=== PATIENT | female | born 1960 | race Caucasian/White ===

== ENCOUNTER → 2019-10-28 16:39 | Outpatient (CLI) | payer BC, SELFPAY ==
--- NOTE | 2019-10-28 16:39 | MM_ITS ---
PROCEDURE: MM DIG SCREENING MAMM BI W/CAD Digital Breast Tomosynthesis Included CLINICAL INDICATION: screening xmg There is a history of breast cancer patient's mother diagnosed after menopause and the patient's maternal aunt and paternal aunt. There has been previous biopsy right breast for benign disease. COMPARISON: MG DIG MAMMO BILAT SCREENING from 04/23/2010 MG MA MAMMO SCRN DIGITL BILAT from 03/29/2012 MG MA MAMMO SCRN DIGITL BILAT from 09/17/2013 MG MA MAMMO SCRN DIGITL BILAT from 10/01/2014 MG MA MAMMO SCRN DIGITL BILAT from 10/04/2015 Previous digital mammograms from [facility] were obtained but only CC views or available for review. TECHNIQUE: Standard CC and MLO images and 3D Tomosynthesis was obtained. R2 CAD reviewed. FINDINGS: Scattered fibroglandular densities are seen in both breast primarily upper outer quadrants. There are several mole markers on each breast. There is a stable tiny benign-appearing nodular density upper-outer quadrant right breast. There are additional benign-appearing nodular densities outer quadrant right breast which have appearance typical of intramammary nodes which are stable and unchanged from previous outside exams. There is no suspicious lesion and no suspicious microcalcifications. IMPRESSION: Fibrofatty parenchyma with no suspicious lesions seen BI-RAD Category: 2 Benign Finding(s) FOLLOW-UP: 1YR 1 Year Follow-up (A letter has been sent to the patient regarding results of the study.) Dictated Dr. Crow Mcgee MD 11/14/2019 08:13 Dr. Crow Bender MD in [place] 11/14/2019 08:13
== END ==
PROVIDERS: PCP Family Medicine; Visit Provider Nurse Practitioner Obstetrics & Gynecology
DX: Z12.31 Encounter for screening mammogram for malignant neoplasm of breast (principal)
CPT/HCPCS: 77063; 77067

== ENCOUNTER → 2020-03-31 14:04 | Outpatient (CLI) | payer BC, SELFPAY ==
--- NOTE | 2020-03-31 14:19 | US_ITS ---
PROCEDURE: US SOFT TISSUE HEAD AND NECK CLINICAL INDICATION: NECK MASS COMPARISON: No exams were available for comparison FINDINGS: Scanning over the palpable area right side of the neck what appears to normal appearing lymph node. Scanning over a similar area left-sided neck shows normal appearing lymph node. No abnormal lymphadenopathy identified and no other abnormal masses seen. IMPRESSION: Probable normal nodes both sides of the neck Dictated by: Dr. Crow Bender MD 04/05/2020 08:49 Dr. Crow Bender MD in 04/05/2020 08:49
== END ==
PROVIDERS: PCP Family Medicine; Visit Provider Family Medicine
DX: R22.1 Localized swelling, mass and lump, neck (principal)
CPT/HCPCS: 76536

== ENCOUNTER → 2020-09-29 13:09 | Outpatient (CLI) | payer BC, SELFPAY ==
--- NOTE | 2020-09-29 13:16 | US_ITS ---
PROCEDURE: US KIDNEY CLINICAL INDICATION: HEMATURIA,UNSPECIFIED TYPE, FAMILY HX OF KIDNEY CANCER COMPARISON: No exams were available for comparison FINDINGS: The right kidney is 8 x 4 x 5 cm. No hydronephrosis, cortical thinning, or renal mass or perinephric fluid collection is evident. The left kidney is 10 x 5 x 6 cm. No hydronephrosis, cortical thinning, or renal mass or perinephric fluid collection is evident. IMPRESSION: Unremarkable bilateral renal ultrasound Dictated by: Jeyson Cannon MD 09/30/2020 15:04 Jeyson Cannon MD in [place] 09/30/2020 15:04
== END ==
PROVIDERS: PCP Family Medicine; Visit Provider Family Medicine
DX: R31.9 Hematuria, unspecified (principal); Z80.51 Family history of malignant neoplasm of kidney
CPT/HCPCS: 76770

== ENCOUNTER → 2021-10-17 10:15 | Outpatient (CLI) | payer BC, SELFPAY ==
--- NOTE | 2021-10-17 10:16 | MM_ITS ---
PROCEDURE INFORMATION: Exam: MG Bilateral Screening 3D Mammography Exam date and time: 10/17/2021 10:17 AM Age: 61 years old Clinical indication: Screening mammogram TECHNIQUE: Imaging protocol: Bilateral Screening tomosynthesis and 2D mammography including computer-aided detection (CAD) when performed. COMPARISON: MG MM DIG SCREENING MAMM BI W/CAD 10/28/2019 4:46 PM FINDINGS: MAMMOGRAPHY: Breast composition: There are scattered areas of fibroglandular density. Mass: None. Architectural distortion: No new or suspicious architectural distortion. Calcifications: No new or suspicious calcifications are present Asymmetric density: No new or suspicious asymmetric density is present Skin thickening: None. Axillary adenopathy: None. IMPRESSION: No mammographic evidence of malignancy. Recommend annual screening mammography unless otherwise clinically indicated. ASSESSMENT: BI-RADS category 1: Negative
== END ==
PROVIDERS: PCP Family Medicine; Visit Provider Nurse Practitioner Obstetrics & Gynecology
DX: Z12.31 Encounter for screening mammogram for malignant neoplasm of breast (principal)
CPT/HCPCS: 77063; 77067

== ENCOUNTER 2023-08-07 15:51 | Outpatient (CLI) | payer MEDICARE, SELFPAY ==
--- NOTE | 2023-08-07 15:52 | MM_ITS ---
PROCEDURE INFORMATION: Exam: MG Bilateral Screening 3D Mammography Exam date and time: 08/07/2023 3:52 PM Age: 63 years old Clinical indication: Screening examination TECHNIQUE: Imaging protocol: Bilateral Screening tomosynthesis and 2D mammography including computer-aided detection (CAD) when performed. COMPARISON: 1. MG MM DIG SCREENING MAMM BI W/CAD 10/17/2021 10:17 AM 2. MG MM DIG SCREENING MAMM BI W/CAD 10/28/2019 4:46 PM FINDINGS: MAMMOGRAPHY: Breast composition: There are scattered areas of fibroglandular density. Mass: None. Architectural distortion: None. Calcifications: No suspicious calcifications. Asymmetric density: None. Skin thickening: None. Axillary adenopathy: None. IMPRESSION: No mammographic evidence of malignancy. Annual screening is recommended unless otherwise clinically indicated. ASSESSMENT: BI-RADS Category 1: Negative
== END 2023-08-07 23:59 | disposition home or self-care (01) ==
LOC: RAD 15:52
PROVIDERS: PCP Nurse Practitioner Obstetrics & Gynecology; Visit Provider Nurse Practitioner Obstetrics & Gynecology
DX: Z12.31 Encounter for screening mammogram for malignant neoplasm of breast (principal)
CPT/HCPCS: 77063; 77067

== ENCOUNTER 2025-01-27 15:36 | Outpatient (CLI) | payer MEDICARE, SELFPAY ==
--- OUTSIDE RECORDS SUMMARY | 2025-01-27 15:41 | XMS_ITS | Encounter Summary ---
[facility] Organization [facility] Address [address] [place] [address] Care Team Providers Care Communications Strategist Name Role Phone Thai Kline MD Primary Care Provider + Encounter Details Date Type Department Care Team (Late st Contact Info) Description 10/22/2024 Results Follow-Up [facility] MED[facility]INE [address] [facility] [place] [address] Thai Kline MD [address] [place] [address] Social History Tobacco Use Types Packs/Day Years Used Date Smoking Tobacco: Never Smokeless Tobacco: Never Alcohol Use Standard Drinks/Week Comments Never 0 (1 standard drink = 0.6 oz pur e alcohol) PHQ-2 Answer Date Recorded Retired PHQ-9: Brief Depression Severity Measure Score 0 04/13/2022 PHQ-2 Answer Date Recorded Patient Health Questionnaire-2 Score 0 10/21/2024 Comments Unknown Sex and Gender Information Value Date Recorded Sex Assigned at Female 10/14/2024 9:13 AM EDT Legal Sex Female 10:46 AM EDT Gender Identity Not on file Sexual Orientation Not on file documented as of this encounter Plan of Treatment Upcoming Encounters Date Type Department Care Team (Late st Contact Info) Description 04/23/2025 8:15 AM EST Office Visit [facility] MED[facility] [address] [facility] [place] [address] Thai Kline MD [address] [place] [address] documented as of this encounter Visit Diagnoses Not on filedocumented in this encounter Care Teams Communications Strategist Relationship Specialty Start Date End Date Thai Kline MD [address] [place] [address] PCP - General Family Medicine 08/04/21 documented as of this encounter
--- OUTSIDE RECORDS SUMMARY | 2025-01-27 15:41 | XMS_ITS | Clinical Summary ---
Author Organization Healthcare Address [address] [place] [address] Care Team Providers Care Director Digital Name Role Phone Unavailable Primary Care Provider Unavailabl e Social History Tobacco Use Types Packs/Day Years Used Date Smoking Tobacco: Never Assessed Comments Unknown Sex and Gender Information Value Date Recorded Sex Assigned at Not on file Legal Sex Female 8:53 PM EDT Gender Identity Not on file Sexual Orientation Not on file Last Filed Vital Signs Vital Sign Reading Time Taken Comments Blood Pressure - - Pulse - - Temperature - - Respiratory Rate - - Oxygen Saturation - - Inhaled Oxygen Concentration - - Weight 85.9 kg (189 lb 6 oz) 08/24/2010 4:30 PM EDT Height - - Body Mass Index - - Plan of Treatment Not on file
--- OUTSIDE RECORDS SUMMARY | 2025-01-27 15:41 | XMS_ITS | Encounter Summary ---
Author Organization [facility] Address [address] [place] [address] Care Team Providers Care Warehouse Distribution Specialist Name Role Phone Thai Kline MD Primary Care Provider + Reason for Visit * Reason Comments Med Refill Encounter Details Date Type Department Care Team (Late st Contact Info) Description 06/19/2024 Refill [facility] MED[facility]INE [address] [facility] [place] [address] Thai Kline MD [address] [facility] [address] Type 2 diabetes mellitus without complication, without long-term current use of insulin Social History Tobacco Use Types Packs/Day Years Used Date Smoking Tobacco: Never Smokeless Tobacco: Never Alcohol Use Standard Drinks/Week Comments Never 0 (1 standard drink = 0.6 oz pur e alcohol) PHQ-2 Answer Date Recorded Retired PHQ-9: Brief Depression Severity Measure Score 0 04/13/2022 PHQ-2 Answer Date Recorded Patient Health Questionnaire-2 Score 0 04/17/2024 Comments Unknown Sex and Gender Information Value Date Recorded Sex Assigned at Female 10/14/2024 9:13 AM EDT Legal Sex Female 10:46 AM EDT Gender Identity Not on file Sexual Orientation Not on file documented as of this encounter Plan of Treatment Upcoming Encounters Date Type Department Care Team (Late st Contact Info) Description 04/23/2025 8:15 AM EST Office Visit [facility] MEDICINE [address] [place] [address] Thai Kline MD [address] [place] [address] documented as of this encounter Visit Diagnoses Diagnosis Type 2 diabetes mellitus without complication, without long-term current use of insulin documented in this encounter Care Teams Warehouse Distribution Specialist Relationship Specialty Start Date End Date Thai Kline MD [address] [place] [address] PCP - General Family Medicine 08/04/21 documented as of this encounter
--- OUTSIDE RECORDS SUMMARY | 2025-01-27 15:41 | XMS_ITS | Continuity of Care Document ---
Author Organization [facility] JERRY Delacruz BETHEL Address [address] [place] [address] Care Team Providers Care Country Printer Apprentice Name Role Phone WILMER VASQUEZ Referring Provider [phone] WILMER VASQUEZ Primary Care Provider Assessment No assessment recorded. Plan of Treatment Reminders Order Date Submit Date Provider Last Modified By Organization Details Last Modified Time Details Appointments DERM VISIT 026 01:10PM KRISTOFER JACKMAN MD Not available Not available Not available Lab None recorde d. Referral None recorde d. Procedures None recorde d. Surgeries None recorde d. Imaging None recorde d. Medication Orders None recorde d. Patient TargetsNo targets recorded. Patient Instructions Encounter Date Encounter Id Patient Instructions Last Modified By Organization Details Last Modified Time 01/07/2025 [id number] pt reports havin g itchy skin, recommend Cera Ve itch relief. skin care HO given. Not available 01/07/2025 13:50:00 Reason for Referral None Reported. Procedures Surgical History Date Name Laterality Status Provider Name and Address Organization Details Recorded Time 01/07/2025 DAK - Cryo AK completed Jordan Sue [facility] 01/07/2025 13:48:44 Imaging Results None recorded. Procedure Notes None recorded. Medical Equipment None Reported. Allergies Allergen ID Allergen Name Allergen Category Reaction Reaction Severity Criticality Documentation Date Start Date Code Code System Note Provider Name and Address Organization Details Recorded Time 715615 codeine medicatio n Not available Not available Not available 01/07/2025 2670 RxNorm Donte mcelroy [facility] 13:30:12 155286 latex environme nt,medica tion Not available Not available Not available 01/07/2025 49737 91 RxNorm Donte Richards [facility] 13:30:17 041278 erythromy sana medicatio n Not available Not available Not available 01/07/2025 4053 RxNorm Dontekamala Richards [facility] 13:32:25 Medications Name Sig Start Date Stop Date Status Note LastModified by Organization Details LastModified Time Multiple Vitamin capsule Daily active Duration: 30 days;Frequ ency: daily;Medi cation Descriptio n: multivitam in; Dosage:1; Route:oral ; refills:3; Quantity:1 00 capsule Not Available Not Available Not Available lisinopril 20 mg tablet Bedtime 2009 active Duration: 30 days;Frequ ency: hs;Medicat ion Descriptio n: lisinopril ; Dosage:1; Route:oral ; refills:5; Quantity:3 0 tablet Not Available Not Available Not Available Lexapro 10 mg tablet Daily 2009 active Duration: 30 days;Frequ ency: daily;Medi cation Descriptio n: escitalopr am; Dosage:1; Route:oral ; refills:5; Quantity:3 0 tablet Not Available Not Available Not Available calcium active Medication Descriptio n: calcium carbonate; Route:oral ; refills:0 Not Available Not Available Not Available Metamucil Two times a day active Frequency: bid;Medica tion Descriptio n: psyllium; Dosage:1; Route:oral ; refills:0 Not Available Not Available Not Available Miralax Two times a day active Instructio ns: 17gm in 8oz fluids QTY QS;Frequen cy: bid;Medica tion Descriptio n: polyethyle ne glycol 3350; Dosage:as directed; Route:oral ; refills:0; Quantity:1 powder for reconstitu tion Not Available Not Available Not Available Fortamet 2009 active Medication Descriptio n: metformin; Route:oral ; refills:0 Not Available Not Available Not Available Align (B.infanti s) 4 mg capsule Daily active Duration: 30 days;Frequ ency: daily;Medi cation Descriptio n: bifidobact erium infantis; Dosage:1; Route:oral ; refills:0; Quantity:3 0 capsule Not Available Not Available Not Available Toviaz 4 mg tablet,ext ended release active Medication Descriptio n: fesoterodi ne; Route:oral ; refills:0 Not Available Not Available Not Available Vitals None Recorded Social History None recorded. Functional Status None recorded. Mental Status None recorded. Family History Relationship Description Onset Age of this Age Resolved Age Notes LastModified by Organization Details LastModified Time Sister Malignant neoplasm of skin [email or web address] Not available 01/07 13:30:56 Brother Malignant neoplasm of skin kvogelsang Not available 01/07 13:30:56 Medical History No medical history recorded. Gynecological HistoryNo gynecological history recorded. Obstetrics History GPAL:G 0 P 0 0 0 0 Past Encounters Encounter ID Performer Location Encounter Start Date Encounter Closed Date Diagnosis/Indication Diagnosis SNOMED-CT Code Diagnosis ICD10 Code Diagnosis IMO Codes Diagnosis Note [id number] KRISTOFER JACKMAN MD [address] [id number] 01/07/2025 13:18:21 01/07/2025 13:54:47 Melanocytic nevus of trunk 470501200 D22.5 L81.4 D18.01 L82.1 [id number] Benign appearing lesions.Re assurance given.Sun protection discussed. Look for physical robel sunscreens with at least SPF 30 containing zinc oxide or titanium dioxide as active ingredient . This helps avoid risks inherent to chemical sunscreens including photoaller gic, phototoxic , allergic contact and irritant contact dermatitis .Recommend monthly self examinatio ns and yearly full skin examinatio n with a dermatolog y provider.P atient instructed to call with any concerns or changing lesions. Actinic keratosis 007 L57.0 46178 Actinic keratoses are precancero us lesions that may progress to squamous cell carcinoma if untreated. UV light and genetics may increase risk. Treated lesions should blister, scab over, and heal within a few weeks.-Dis cussed treatment options including cryotherap y. If lesion on nose does not resolve within a month, RTC for biospy. Health Concerns Section Related Observation LastModified by Organization Krystal gan LastModified Time None Recorded Concern Status LastModified by Organization Details LastModified Time None Recorded Payers Encounter Date Sequence Insurance Name Policy Number Policy Haley Covered Member ID Haley Member ID Guarantor Name 01/07/2025 1 [place] GUIDEDACCESS [place]ON[place] - PATHWAY X (POS) [id number] Davina Wilkins [id number] Davina Wilkins Notes Date Note Type Note Provider Name and Address Organization Details Recorded Time 01/07/2025 text/html ROS as noted in the HPI I'm here for a skin checkConcerns: noseReports: pcp thinks spot on nose is SCC New pt. KRISTOFER JACKMAN MD [address] [place] [address], [phone], [facility] 01/07/2025 13:55:00 OBGyn Episode No OBEpisode recorded.
--- OUTSIDE RECORDS SUMMARY | 2025-01-27 15:42 | XMS_ITS | Encounter Summary ---
[facility] [address] [place] [address] Care Team Providers Care Youth Program Director Name Role Phone Thai Kline MD Primary Care Provider + Reason for Visit * Reason Comments Med Refill Encounter Details Date Type Department Care Team (Late st Contact Info) Description 12/20/2024 Refill [facility] [address] [facility] [place] [address] Thai Kline MD [address] [place] [address] Localized osteoporosis without current pathological fracture Social History Tobacco Use Types Packs/Day Years [...] Description 04/23/2025 8:15 AM EST Office Visit [facility] MEDICINE [address] [place] [address] Thai Kline MD [address] [place] [address] documented as of this encounter Visit Diagnoses Diagnosis Localized osteoporosis without current pathological fracture documented in this encounter Care Teams Youth Program Director Relationship Specialty Start Date End Date Thai Kline MD [address] [place] [address] PCP - General Family Medicine 08/04/21 documented as of this encounter
--- OUTSIDE RECORDS SUMMARY | 2025-01-27 15:42 | XMS_ITS | Encounter Summary ---
[facility] Address [address] [place] [address] Care Team Providers Care Distillery Supervisor Name Role Phone Thai Kline MD Primary Care Provider + Encounter Details Date Type Department Care Team (Late st Contact Info) Description 10/31/2024 Results Follow-Up [facility] MED[facility]INE [address] [facility] [place] [address] Thai Kline MD [address] [place] [address] Social History Tobacco Use Types [...] Description 04/23/2025 8:15 AM EST Office Visit [facility] [address] [facility] [place] [address] Thai Kline MD [address] [place] [address] documented as of this encounter Visit Diagnoses Not on filedocumented in this encounter Care Teams Distillery Supervisor Relationship Specialty Start Date End Date Thai Kline MD [address] [place] [address] PCP - General Family Medicine 08/04/21 documented as of this encounter
--- OUTSIDE RECORDS SUMMARY | 2025-01-27 15:42 | XMS_ITS | Data Portability ---
Author Organization [facility] Address [address] [place] [address] Care Team Providers Care Acoustics Teacher Name Role Phone WILMER VASQUEZ Referring Provider WILMER VASQUEZ Primary Care Provider [phone] Assessment No assessment recorded. Plan of Treatment [...] By Organization Details Last Modified Time 01/07/2025 [id number] pt reports elieserin g itchy skin, recommend Cera Ve itch relief. skin care HO given. [email or web address] Not available 01/07/2025 13:50:00 Reason for Referral None Reported. Procedures Surgical History Date Name Laterality Status Provider Name and Address Organization Details Recorded Time 01/07/2025 DAK - Cryo AK completed Jordan [facility] 01/07/2025 13:48:44 Imaging Results None recorded. Procedure Notes None recorded. Medical Equipment None Reported. Allergies Allergen ID Allergen Name Allergen Category Reaction Reaction Severity Criticality Documentation Date Start Date Code Code System Note Provider Name and Address Organization Details Recorded Time 276278 codeine medicatio n Not available Not available Not available 01/07/2025 2670 RxNorm Donte Richards [facility] 13:30:12 662032 latex environme nt,medica tion Not available Not available Not available 01/07/2025 66240 91 RxNorm Donte Richards [facility] 13:30:17 905420 erythromy sana medicatio n Not available Not available Not available 01/07/2025 4053 RxNorm Donte Richards [facility] 13:32:25 Medications Name Sig Start Date Stop [...] ICD10 Code Diagnosis IMO Codes Diagnosis Note [id number] [place] [address] 07/10/2016 14:28:23 07/10/2016 14:28:23 [id number] KRISTOFER JACKMAN MD [address] [place] [address] [place] [address] 01/07/2025 13:18:21 01/07/2025 13:54:47 Melanocytic nevus of trunk 822176703 D22.5 L81.4 D18.01 L82.1 [id number] Benign appearing lesions.Re assurance given.Sun protection discussed. [...] any concerns or changing lesions. Actinic keratosis 188178 007 L57.0 13530 Actinic keratoses are precancero us lesions that may progress to squamous cell carcinoma if untreated. UV light and genetics may increase risk. Treated lesions should blister, scab over, and heal within a few weeks.-Dis cussed treatment options including cryotherap y. If lesion on nose does not resolve within a month, RTC for biospy. Health Concerns Section Related Observation LastModified by Organization Detai ls LastModified Time None Recorded Concern Status LastModified by Organization Details LastModified Time None Recorded Advance Directives Directive None Recorded Payers Insurance Date Sequence Insurance Name Policy Number Policy Haley Covered Member ID Haley Member ID Guarantor Name 01/07/2025 1 [place]ACCESS [place] - PATHWAY X (POS) [id number] Davina Wilkins [id number] Davina Wilkins Notes Date Note Type Note Provider Name and Address Organization Details Recorded Time 01/07/2025 text/html ROS as noted in the HPI I'm here for a skin checkConcerns: noseReports: pcp thinks spot on nose is SCC New pt. KRISTOFER JACKMAN MD [address] [place], [address], [facility] 01/07/2025 13:55:00 OBGyn Episode No OBEpisode recorded.
--- OUTSIDE RECORDS SUMMARY | 2025-01-27 15:42 | XMS_ITS | Clinical Summary ---
Author Organization [facility] Address [address] [place] [id number] Care Team Providers Care Sagger Soak Name Role Phone Thai Kline MD Primary Care Provider + Allergies Active Allergy Reactions Criticality Noted Date Comments Codeine Nausea And Vomiting Low 08/04/2021 Erythromycin Nausea And Vomiting Low 08/04/2021 Iodinated Contrast Media Rash Low 04/08/2021 Medications multivitamin with minerals tablet tablet Take 1 tablet by mouth Daily. Active Ibuprofen-diphenh ydrAMINE Cit (ADVIL PM PO) Take by mouth. A ctive glucose blood (OneTouch Ultra) test stripIndications: Type 2 diabetes mellitus without complication, without long-term current use of insulin Use as instructed 100 each 2 4 Active polyethylene glycol (GoLYTELY) 236 g solution Starting at noon on day prior to procedure, drink 8 ounces every 30 minutes until all gone or stools are clear. May add flavor packet. 4000 mL 4 Active Blood Glucose Monitoring Suppl (ONE TOUCH ULTRA 2) w/Device kitIndications:Ty pe 2 diabetes mellitus without complication, without long-term current use of insulin Use Glucometer daily to check blookd sugar. 1 each 5 Active atorvastatin (LIPITOR) 10 MG tabletIndications :Type 2 diabetes mellitus without complication, without long-term current use of insulin Take 1 tablet by mouth Daily. 30 tablet 11 5 Active dapagliflozin Propanediol 10 MG tabletIndications :Type 2 diabetes mellitus without complication, without long-term current use of insulin,Stage 3a chronic kidney disease (CKD) Take 10 mg by mouth Daily. 30 tablet 11 5 Active escitalopram (LEXAPRO) 10 MG tabletIndications :Mood disorder Take 1 tablet by mouth Daily. 90 tablet 1 5 Active metFORMIN (GLUCOPHAGE) 500 MG tabletIndications :Type 2 diabetes mellitus without complication, without long-term current use of insulin Take 1 tablet by mouth 2 (Two) Times a Day With Meals. 60 tablet 11 5 Active traZODone (DESYREL) 50 MG tabletIndications :Insomnia, unspecified type Take 1 tablet by mouth Every Night. 90 tablet 3 5 Active lisinopril (PRINIVIL,ZESTRIL ) 40 MG tabletIndications :Primary hypertension TAKE 1 TABLET BY MOUTH DAILY 90 tablet 3 5 Active cyclobenzaprine (FLEXERIL) 5 MG tabletIndications :Neck pain TAKE ONE TABLET BY MOUTH ONCE NIGHTLY NEEDED FOR MUSCLE SPASMS 30 tablet 6 5 Active oxybutynin XL (DITROPAN-XL) 10 MG 24 hr tabletIndications :Overactive bladder Take 1 tablet by mouth Daily. 30 tablet 11 5 Active alendronate (FOSAMAX) 70 MG tabletIndications :Localized osteoporosis without current pathological fracture TAKE 1 TABLET BY MOUTH ONCE WEEKLY ON AN EMPTY STOMACH BEFORE BREAKFAST. REMAIN UPRIGHT FOR 30 MINUTES AND TAKE WITH 8 OUNCES OF WATER 12 tablet 5 Active Active Problems Problem Noted Date Diagnosed Date Stage 3a chronic kidney disease (CKD) 10/12/2022 Overactive bladder 04/13/2022 Assessment & Plan (10/21/2024 9:56 AM EDT): Orders: oxybutynin XL (DITROPAN-XL) 10 MG 24 hr tablet; Take 1 tablet by mouth Daily. Neck pain 04/13/2022 Type 2 diabetes mellitus wit hout complication, without long-term current use of insulin 10/12/2021 Assessment & Plan (10/21/2024 9:56 AM EDT): {Diabetes (Optional):[id number]} Orders: POC Albumin/Creatinine Ratio Urine Assessment & Plan (04/13/2022 11:25 AM EST): Diabetes is improving with treatment. Continue current treatment regimen. Regular aerobic exercise. Diabetes will be reassessed in 6 months. Primary hypertension 10/12/2021 Assessment & Plan (10/21/2024 9:56 AM EDT): {Hypertension is (optional):[id number]} Assessment & Plan (04/13/2022 11:25 AM EST): Hypertension is improving with treatment. Continue current treatment regimen. Dietary sodium restriction. Regular aerobic exercise. Blood pressure will be reassessed at the next regular appointment. Mood disorder 10/12/2021 Assessment & Plan (04/13/2022 11:25 AM EST): Psychological condition is Stable. Continue current treatment regimen. Psychological condition will be reassessed at the next regular appointment. Class 1 obesity 10/12/2021 Encounters Date Type Department Care Team Description 12/20/2024 Refill [facility] [address] [place] [phone] Thai Kline MD Localized osteoporosis without current pathological fracture 10/31/2024 Results Follow-Up [facility] [address] [phone] Thai Kline MD 10/30/2024 8:00 AM EDT Lab [facility] [address] [phone] 10/30/2024 Travel from Last 3 Months Immunizations Immunization Administration Dates Next Due Flu Vaccine Split Quad 03/22/2018 Influenza MDCK Quadrivalent with Preserative Pneumococcal Conjugate 13-Valent (PCV13) 018 Pneumococcal Conjugate 20-Valent (PCV20) 025 Social History Tobacco Use Types Packs/Day Years Used Date Smoking Tobacco: Never Smokeless Tobacco: Never Tobacco Cessation:Counseling Given: Not Answered Alcohol Use Standard Drinks/Week Comments Never 0 [...] Sign Reading Time Taken Comments Blood Pressure 110/70 10/21/2024 7:52 AM EDT Pulse 84 10/21/2024 7:52 AM EDT Temperature 36.7 C (98 F) 10/21/2024 7:52 AM EDT Respiratory Rate 16 10/21/2024 7:52 AM EDT Oxygen Saturation 96% 10/21/2024 7:52 AM EDT Inhaled Oxygen Concentration - - Weight 83 kg (183 lb) 10/21/2024 7:52 AM EDT Height 162.6 cm (5' 4 ) 10/21/2024 7:52 AM EDT Body Mass Index 31.41 10/21/2024 7:52 AM EDT Plan of Treatment Upcoming Encounters Date Type Department Care Team (Late st Contact Info) Description 04/23/2025 8:15 AM EST Office Visit [facility] [address] [facility] [place] [address] Thai Kline MD [address] [facility] [place] [address] Health Maintenance Due Date Last Done Comments TDAP/TD VACCINES (1 - Tdap) 1977 COLOGUARD 06/17/2003 COLON CANCER SCREENING 5 YEA R SIGMOIDOSCOPY 06/17/2003 CT COLONOGRAPHY 06/17/2003 FECAL OCCULT BLOOD TEST 06/17/2003 FIT Testing (1 year) 06/17/2003 ZOSTER VACCINE (1 of 2) 2008 HEPATITIS C SCREENING 01/13/2019 COVID-19 Vaccine (3 - Modern a risk series) 04/15/2021 03/18/2021, 07/30/2020, 07/02/2020 INFLUENZA VACCINE 11/07/2024 03/22/2018, 03/22/2018 HEMOGLOBIN A1C 04/23/2025 10/21/2024, 03/09, 10/16/2023, Additional history exists MAMMOGRAM 08/06/2025 08/07/2023, 10/17/2021 DIABETIC EYE EXAM 09/30/2025 09/30/2024, 09/25/2023 ANNUAL WELLNESS VISIT 10/21/2025 10/21/2024, 025 DIABETIC FOOT EXAM 10/21/2025 10/21/2024, 0 10/21/2024, 10/21/2024, Additional history exists URINE MICROALBUMIN-CREATININ E RATIO (uACR) 10/21/2025 10/21/2024 DXA SCAN 10/22/2025 10/23/2023 COLONOSCOPY 11/01/2033 11/02/2023 COLORECTAL CANCER SCREENING 11/01/2033 Pneumococcal Vaccine 50+ Completed 04/17/2024, 09/08 Procedures Procedure Name Priority Date/Time Associated Diagnosis Comments RENAL FUNCTION PANEL Routine 10/30/2024 8:20 AM EDT Stage 3a chronic kidney disease (CKD) HEMOGLOBIN A1C Routine 10/21/2024 8:37 AM EDT Type 2 diabetes mellitus without complication, without long-term current use of insulin POC ALBUMIN/CREATININE RATIO Routine 10/21/2024 8:10 AM EDT Type 2 diabetes mellitus without complication, without long-term current use of insulin SCANNED - EYE EXAM 09/30/2024 SCANNED - COLONOSCOPY 11/02/2023 DEXA BONE DENSITY AXIAL Routine 10/23/2023 2:59 PM EDT Postmenopausal Screening for osteoporosis SCANNED - MAMMO 08/07/2023 from Last 3 Months or Most Recently Relevant to Health Maintenance Results * (ABNORMAL) Renal Function Panel (10/30/2024 8:20 AM EDT) Glucose 174(H) 65 - 99 mg/dL [facility] BUN 22.0 8.0 - 23.0 mg/dL [facility] Creatinine 1.26(H) 0.57 - 1.00 mg/dL [facility] EGFR Result 47.2(L) >60.0 mL/min/1.7 3 [facility] Comment: GFR Categories in Chronic Kidney Disease (CKD) GFR Category GFR (mL/min/1.73) Interpretation G1 90 or greater Normal or high (1) G2 60-89 Mild decrease (1) G3a 45-59 Mild to moderate decrease G3b 30-44 Moderate to severe decrease G4 15-29 Severe decrease G5 14 or less Kidney failure (1)In the absence of evidence of kidney disease, neither GFR category G1 or G2 fulfill the criteria for CKD. eGFR calculation 2020 CKD-EPI creatinine equation, which does not include race as a factor BUN/Creatinine Ratio 17.5 7.0 - 25.0 [facility] Sodium 137 136 - 145 mmol/L [facility] Potassium 4.8 3.5 - 5.2 mmol/L [facility] Chloride 99 98 - 107 mmol/L [facility] Total CO2 25.4 22.0 - 29.0 mmol/L [facility] Calcium 10.3 8.6 - 10.5 mg/dL [facility] Phosphorus 3.6 2.5 - 4.5 mg/dL [facility] Albumin 4.5 3.5 - 5.2 g/dL [facility] Blood 10/30/2024 8:20 AM EDT 10/30/2024 Narrative [facility] ([facility]) - 10/31/2024 3:07 AM EDT Performed at: [address] [place] [id number] Engineering Technical Writer: Rupert Cardoza MD, Phone: [phone] Patient Fasting: Y us Thai Kline MD LAB BLOOD ORDERABLES Fin al Result [facility] ([facility]) [address] [place] [address], [place] [phone] [facility] [address] [place] [address], [place] [phone] * (ABNORMAL) Hemoglobin A1c (10/21/2024 8:37 AM EDT) Hemoglobin A1C 6.70(H) 4.80 - 5.60 % [facility] Comment: Hemoglobin A1C Ranges: Increased Risk for Diabetes 5.7% to 6.4% Diabetes >= 6.5% Diabetic Goal < 7.0% Blood 10/21/2024 8:37 AM EDT 10/21/2024 Narrative [facility] ([facility]BUL[facility]) - 10/22/2024 4:07 AM EDT Performed at: [address] [place] [id number] Engineering Technical Writer: Rupert Cardoza MD, Phone: [phone] Patient Fasting: Y Thai Kline MD LAB BLOOD ORDERABLES Fin al Result Performing Organization Address City/State/[facility] Co de Phone Number [facility] (AMBULATORY) [address] [place] [address], [facility] [address] [place] [address], * (ABNORMAL) POC Albumin/Creatinine Ratio Urine (10/21/2024 8:10 AM EDT) Pathologist [facility] POC ALBUMIN, URINE 10 mg/L POC CREATININE, URINE 10 mg/dL POC Urine Albumin Creatinine Ratio 30-300 <30 Lot Number [id number] Expiration Date 08/06/2025 Urine 10/21/2024 8:10 AM EDT Thai Kline MD POINT OF CARE TEST ORDER ISABELLE Final Result * EYE EXAM SCANNED (09/30/2024) Anatomical Region Laterality Modality Other Thai Kline MD CHART REVIEW TABS Fin al Result * Colonoscopy, Scan (11/02/2023) aTnvi Min MD CHART REVIEW TABS Final Resul t * DEXA Bone Density Axial (10/23/2023 2:59 PM EDT) Anatomical Region Laterality Modality Wrist, Hip, L-spine N/A Bone Density 10/23/2023 3:33 PM EDT Impressions 10/24/2023 5:35 PM EDT Osteoporosis of the femoral necks bilaterally. Osteopenia of the L1-L4 vertebrae, and total right hip. The ten year fracture risk assessment was not calculated because some T-scores were at or below -2.5. All the treatment decisions require clinical judgment and consideration of individual patient factors, including patient preferences, co-morbidities, previous drug use, risk factors not captured in the FRAX model (frailty, falls, vitamin D deficiency, increased bone turnover, interval significant decline in bone density) and possible under or over estimation of fracture risk by FRAX. Approaches to reduce osteoporosis related fracture risk include optimizing calcium and vitamin D status, appropriate weight bearing exercises and fall-prevention measurements. The National Osteoporosis Foundation recommends (http://www.nof.org/hcp/practice/jigkciln-rji-xdtsbchm-guidelines/clinicians-jessica de) that FDA-approved medical therapies be considered in postmenopausal women and men aged equal or greater than 50 years with : a) hip or vertebral (clinical or morphometric) fracture; b) T-score of -2.5 or less at the spine or hip; c) Ten-year fracture probability by FRAX of greater than 3% for hip fracture of greater than 20% for major osteoporotic fracture. Secondary causes of bone loss should be evaluated if clinically indicated since the etiology of low BMD cannot be determined by BMD measurement alone. FOLLOWUP: Consider repeating the study in 2-3 years to reassess the patient's status or sooner if there is some new clinical indication. INTERVAL CHANGE: There were no equivalent studies available for comparison. At this facility, the least significant change in the BMD at the left hip with 95% confidence is 0.616158 gm/cm2 at the hip and 0.000783 g/cm2 at the lumbar spine. Report dictated by: Tara Carr PA-c I have personally reviewed this case and agree with the findings above: Electronically Signed: Marko Lu MD 10/24/2023 5:35 PM EDT Workstation ID: [id number] Narrative 10/24/2023 5:35 PM EDT DUAL-ENERGY X-RAY ABSORPTIOMETRY (DXA) INDICATION: Postmenopausal, screening for osteoporosis COMPARISON: There are no equivalent studies available for comparison PROCEDURE: A DXA scan was performed using a Hologic densitometer. The lumbar spine L1-L4 was evaluated as well as bilateral total hip. The T-score compares the patient's bone mineral density with the peak bone mass of young normal patients. According to criteria established by the World Health Organization, patients with T-scores between 1.0 and 2.5 standard deviations BELOW the mean are osteopenic (low bone mass). Patients with T-scores EQUAL TO OR GREATER than 2.5 standard deviations below the mean are osteoporotic. The Z-score compares the patient bone mineral density with age and sex matched peers. According to the International Society for Clinical Densitometry's 2007 consensus conference: In women prior to menopause and men less than age 50, Z-scores, not T-scores are preferred. A Z-score of -2.0 or lower is defined as below the expected range for age and a Z-score above -2.0 is within the expected range for age. The WHO diagnostic criteria may be applied in women in the menopausal transition. Osteoporosis cannot be diagnosed in men under age 50 on the basis of BMD alone. TECHNICAL QUALITY: The study is of good technical quality. RESULTS: Lumbar Spine: The BMD measured in the L1-L4 region is 0.912 g/cm2. The average T-score is -1.2. The Z-score is 0.6. Total Hip: The BMD measured at the left total proximal femur is 0.844 g/cm2. The T-score is -0.8. The Z-score is 0.4. Femoral Neck: The BMD measured at the left femoral neck is 0.571 g/cm2. The T-score is -2.5. The Z-score is -1.0. Total Hip: The BMD measured at the right total proximal femur is 0.775 g/cm2. The T-score is -1.4. The Z-score is -0.1. Femoral neck: The BMD measured at the right femoral neck is 0.564 g/cm2. The T score is -2.6. The Z score is -1.0. Procedure Note Marko Lu MD - 10/24/2023 DUAL-ENERGY X-RAY ABSORPTIOMETRY (DXA) INDICATION: Postmenopausal, screening for osteoporosis COMPARISON: There are no equivalent studies available for comparison PROCEDURE: A DXA scan was performed using a Hologic densitometer. The lumbar spine L1-L4 was evaluated as well as bilateral total hip. The T-score compares the patient's bone mineral density with the peak bonemass of young normal patients. According to criteria established by theTrinity Health Organization, patients with T-scores between 1.0 and 2.5standard deviations BELOW the mean are osteopenic (low bone mass). Patients with T-scores EQUAL TO ORGREATER than 2.5 standard deviations below the mean are osteoporotic. The Z-score compares the patient bone mineral density with age and sexmatched peers. According to the International Society for ClinicalDensitometry's 2007 consensus conference: In women prior to menopause andmen less than age 50, Z-scores, not T-scores are preferred. A Z-score of -2.0 or lower is defined as belowthe expected range for age and a Z-score above -2.0 is within theexpected range for age. The WHO diagnostic criteria may be applied inwomen in the menopausal transition. Osteoporosis cannot be diagnosed in men under age 50 on the basis of BMDalone. TECHNICAL QUALITY: The study is of good technical quality. RESULTS: Lumbar Spine: The BMD measured in the L1-L4 region is 0.912 g/cm2. Theaverage T- score is -1.2. The Z-score is 0.6. Total Hip: The BMD measured at the left total proximal femur is 0.844g/cm2. The T-score is -0.8. The Z-score is 0.4. Femoral Neck: The BMD measured at the left femoral neck is 0.571 g/cm2.The T- score is -2.5. The Z-score is -1.0. Total Hip: The BMD measured at the right total proximal femur is 0.775g/cm2. The T-score is -1.4. The Z-score is -0.1. Femoral neck: The BMD measured at the right femoral neck is 0.564 g/cm2.The T score is -2.6. The Z score is -1.0. IMPRESSION: Osteoporosis of the femoral necks bilaterally. Osteopenia of the L1-O2qgutnqgeb, and total right hip. The ten year fracture risk assessment was not calculated because someT-scores were at or below -2.5. All the treatment decisions require clinical judgment and consideration ofindividual patient factors, including patient preferences, co-morbidities,previous drug use, risk factors not captured in the FRAX model (frailty,falls, vitamin D deficiency, increased bone turnover, interval significant decline in bone density) andpossible under or over estimation of fracture risk by FRAX. Approaches toreduce osteoporosis related fracture risk include optimizing calcium andvitamin D status, appropriate weight bearing exercises and fall-prevention measurements. The NationalOsteoporosis Foundation recommends(http://www.nof.org/hcp/practice/zitwwgsh-nqe-wzzczrmd-guidelines/clin ician s-guide) that FDA-approved medical therapies be considered in postmenopausal women and men aged equal or greater than 50 years with :a) hip or vertebral (clinical or morphometric) fracture; b) T-score of-2.5 or less at the spine or hip; c) Ten-year fracture probability by FRAXof greater than 3% for hip fracture of greater than 20% for major osteoporotic fracture. Secondary causes of bone loss should be evaluated if clinically indicatedsince the etiology of low BMD cannot be determined by BMD measurementalone. FOLLOWUP: Consider repeating the study in 2-3 years to reassess thepatient's status or sooner if there is some new clinical indication. INTERVAL CHANGE: There were no equivalent studies available forcomparison. At this facility, the least significant change in the BMD at the left hipwith 95% confidence is 0.938251 gm/cm2 at the hip and 0.878673 g/cm2 atthe lumbar spine. Report dictated by: Tara Carr PA-c I have personally reviewed this case and agree with the findings above: Electronically Signed: Marko Lu MD 10/24/2023 5:35 PM EDT Workstation ID: [id number] Thai Kline MD IMG DXA ORDERABLES Final Result * MAMMO Scan (08/07/2023) Anatomical Region Laterality Modality Other us David Briones MD CHART REVIEW TABS Final Re sult from Last 3 Months or Most Recently Relevant to Health Maintenance Insurance [facility] MEDICARE ADVANTAGE HMO Care Teams Sagger Soak Relationship Specialty Start Date End Date Thai Kline MD [address] [place] [address] PCP - General Family Medicine 08/04/21
--- OUTSIDE RECORDS SUMMARY | 2025-01-27 15:42 | XMS_ITS | Data Portability ---
Author Organization [facility] ADMIN Address [address] [place] [address] Care Team Providers Care Coping Machine Assembler Name Role Phone PEDRO WILMER Primary Care Provider [phone] Assessment No assessment recorded. Plan of Treatment Reminders Order Date Submit Date Provider Last Modified By Organization Details Last Modified Time Details Appointments None record ed. Lab None record ed. Referral None record ed. Procedures None record ed. Surgeries None record ed. Imaging None record ed. Medication Orders None record ed. Patient TargetsNo targets recorded. 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 This is not significantly painful for and would recommend watchful waiting at this point. I did discuss with her that sometimes these lesions to require excision due to discomfort but if this is not bothering her pain-west, would observe. [email or web address] Not available 05/06/2024 12:34:37 Reason for Referral None Reported. Medical Equipment None Reported. Allergies Allergen ID Allergen Name Allergen Category Reaction Reaction Severity Criticality Documentation Date Start Date Code Code System Note Provider Name and Address Organization Details Recorded Time [id number] codeine medicatio n nausea Not available high 05/01/2024 2670 RxNorm Eve mcelroy [facility] & [place] 14:41:57 Medications Name Sig Start Date Stop Date Status Note LastModified by Organization Details LastModified Time metformin 500 mg tablet active Not Available Not Available Not Available trazodone 50 mg tablet active Not Available Not Available Not Available atorvastatin 10 mg tablet active Not Available Not Available No t Available oxybutynin chloride ER 10 mg tablet,extended release 24 hr active Not Available Not Availabl e Not Available alendronate 70 mg tablet active Not Available Not Available Not Available OneTouch Ultra Test strips active Not Available Not Available Not Available lisinopril 40 mg tablet active Not Available Not Available Not Available escitalopram 10 mg tablet active Not Available Not Available No t Available cyclobenzaprine 5 mg tablet active Not Available Not Available No t Available GaviLyte-G 236 gram-22.74 gram-6.74 gram-5.86 gram oral solution active Not Available Not Availabl e Not Available dapagliflozin propanediol 10 mg tablet active Not Available Not Available Not Available Farxiga 5 mg tablet active Not Available Not Available Not Available OneTouch Ultra2 Meter active Not Available Not Available Not Available Vitals Date Recorded Body weight Body temperature Body mass index (BMI) Body height Provider Name and Address Organization Details Last Updated DateTime 05/01/2024 97072.4 g 98 [degF] 31.4 kg/m2 162.56 cm [facility] 05/01/2024 14:41:10 Social History None recorded. Functional Status None recorded. Mental Status None recorded. Family History Nothing Reported. Medical History Condition Response Diabetes Y Hypertension Y Gynecological HistoryNo gynecological history recorded. Obstetrics History GPAL:G 0 P 0 0 0 0 Past Encounters Encounter ID Performer Location Encounter Start Date Encounter Closed Date Diagnosis/Indication Diagnosis SNOMED-CT Code Diagnosis ICD10 Code Diagnosis IMO Codes Diagnosis Note [id number] Beth Borrero MD [facility] [address] [place] [address] 05/01/2024 14:32:15 05/01/2024 15:33:06 Chondrodermatitis nodularis helicis of left ear [id number] 502699 H61.002 Health Concerns Section Related Observation LastModified by Organization Detai ls LastModified Time None Recorded Concern Status LastModified by Organization Details LastModified Time None Recorded Advance Directives Directive None Recorded Payers Insurance Date Sequence Insurance Name Policy Number Policy Haley Covered Member ID Haley Member ID Guarantor Name 04/18/2024 1 [place] [id number] Bella Wilkins [id number] Davina Wilkins 05/06/2024 1 [place]MED[place]AC[place] HMO) [id number] Davina Wilkins [id number] Davina Wilkins Notes Date Note Type Note Provider Name and Address Organization Details Recorded Time 05/01/2024 text/html 05/01/24-Patient is here for left ear lesion that has been there for about one year. She states that it has not changed in size, no draining. She has tried OTC ointments and it will not get any better. This area is not painful. Beth Borrero MD [address], [place], [address], [facility] [place] & [place] 05/06/2024 12:34:49 OBGyn Episode No OBEpisode recorded.
--- NOTE | 2025-01-27 16:00 | MM_ITS ---
PROCEDURE INFORMATION: Exam: MG Bilateral Screening 3D Mammography Exam date and time: 01/27/2025 3:49 PM Age: 64 years old Clinical indication: Screening exam TECHNIQUE: Imaging protocol: Bilateral Screening tomosynthesis and 2D mammography including computer-aided detection (CAD) when performed. COMPARISON: 1. MG MM DIG SCREENING MAMM BI W/CAD 08/07/2023 3:52 PM 2. MG MM DIG SCREENING MAMM BI W/CAD 10/17/2021 10:17 AM FINDINGS: MAMMOGRAPHY: Breast composition: There are scattered areas of fibroglandular density. Mass: No suspicious masses. Architectural distortion: None. Calcifications: No suspicious calcifications. Asymmetric density: None. Skin thickening: None. Axillary adenopathy: None. IMPRESSION: No mammographic evidence of malignancy. Annual screening is recommended unless otherwise clinically indicated. ASSESSMENT: BI-RADS Category 1: Negative.
== END 2025-01-27 23:59 | disposition home or self-care (01) ==
LOC: RAD 15:37
PROVIDERS: PCP Family Medicine; Visit Provider Nurse Practitioner Obstetrics & Gynecology
DX: Z12.31 Encounter for screening mammogram for malignant neoplasm of breast (principal); R92.323 Mammographic fibroglandular density, bilateral breasts
CPT/HCPCS: 77063; 77067